=== PATIENT | female | born 1940 | race Caucasian/White ===

== ENCOUNTER 2017-09-29 13:59 | Outpatient (CLI) | payer MEDICARE, OTHER ==
--- NOTE | 2017-09-29 16:51 | PET ---
PET CT: 09/29/17 HISTORY: 77-year-old female with metastatic breast cancer with bone mets, right hip pain. Exam requested for r estaging. TECHNIQUE: PET scan with CT attenuation was performed from the base of the brain through the proximal thighs fol lowing the intravenous administration of 10 millicuries [id number] in the left antecubita l fossa. Imaging is performed after an uptake interval of 38 minutes. COMPARISON: PET CT dated 12/12/16. Interval resolution of the previously noted hypermetabolic lesions in the left scapula, right fourth rib, and T10 vertebral body has occurred in the interim. There is hypermetabolic activity noted in the pelvic bones with decreased SUVs in the right iliac cre st (SUV 1.6; previously 4.5), left sacrum (SUV 1.8; previously 8.8), and right superior pubic ramus ( SUV 4.2; previously 5.3). The right acetabulum demonstrates increased FDG localization with a stable SUV of 3. No new hypermetabolic lesions are seen in the skeleton. No clarissa hypermetabolism is noted in the neck, mediastinum, hilar regions, intramammary chains, axill julián regions, abdomen and pelvis. No hypermetabolic pulmonary nodules, liver or adrenal lesions are se en. IMPRESSION: Osseous metastatic disease with interval improvement since 12/12/16. POS: JOHANNE
== END 2017-09-29 14:00 | disposition home or self-care (01) ==
LOC: PET 13:59
PROVIDERS: ATTEND Internal Medicine Hematology & Oncology
DX: C50.919 Malignant neoplasm of unspecified site of unspecified female breast (principal); C79.51 Secondary malignant neoplasm of bone
CPT/HCPCS: 78815; A9552